=== PATIENT | male | born 1975 | race African-American/Black ===

== ENCOUNTER 2017-10-31 15:59 | Emergency (ER) | payer SELFPAY ==
[~2017-10-31] VITALS: Ht 175.3 cm; Wt 108.0 kg
[2017-10-31 16:12] VITALS: BP 156/80; PULSE 68; RESP 18; TEMP 98.5; O2SAT 98
[2017-10-31] MEDS ORDERED: IBUPROFEN 600 MG TAB PO ONE (19:00)
[2017-10-31] MEDS ORDERED: diphenhydrAMINE HCL 25 MG CAP PO ONE (19:00)
[2017-10-31] MEDS ORDERED: PROCHLORPERAZINE INJ 10 MG/2 ML VIAL IM ONE (19:00)
--- NOTE | 2017-10-31 19:05 | RADRPT ---
EXAM DATE/TIME: 10/31/2017 18:56 [place] COMPARISON: No previous studies available for comparison. INDICATIONS : Headaches for one day. RADIATION DOSE: 34.53 CTDIvol (mGy) MEDICAL HISTORY : None SURGICAL HISTORY : None. ENCOUNTER: Initial ACUITY: 1 day PAIN SCALE: 7/10 LOCATION: Bilateral cranial TECHNIQUE: Multiple contiguous axial images were obtained of the head. Using automated exposure control and adj ustment of the mA and/or kV according to patient size, radiation dose was kept as low as reasonably a chievable to obtain optimal diagnostic quality images. DICOM format image data is available electro nically for review and comparison. FINDINGS: CEREBRUM: The ventricles are normal for age. No evidence of midline shift, mass lesion, hemorrhage or acute in farction. No extra-axial fluid collections are seen. POSTERIOR FOSSA: The cerebellum and brainstem are intact. The 4th ventricle is midline. The cerebellopontine angle i s unremarkable. EXTRACRANIAL: The visualized portion of the orbits is intact. SKULL: The calvaria is intact. No evidence of skull fracture. CONCLUSION: No acute disease. Keith Kumar MD on October 31, 2017 at 19:03 Board Certified Radiologist. This report was verified electronically.
[2017-10-31] MEDS ORDERED: METO50TA PO (20:04)
[2017-10-31] MEDS ORDERED: LISI-515 PO (20:04)
--- NOTE | 2017-10-31 20:04 | PD ---
HPI Chief Complaint: Medication Refill Request Time Seen by Provider: 18:39 Travel History International Travel<30 days: No Contact w/Intl Traveler<30days: No Traveled to known affect area: No History of Present Illness HPI Patient is a 41 year old male who comes in complaining of a headache and needing his blood pressure medication. He says he has had headaches on and off for the past 6 months and he believes he needs a Cat scan. He says the pain is in the front of his head. This particular headache has been going on for the day. He denies nausea or vomiting. He had some blurred vision. He took some Tylenol with minimal relief. He denies fever or chills. Severity is mild. He also reports being out of his blood measure medication for 2-3 weeks. He denies chest pain or SOB. PFSH Past Medical History Chest Pain: No Congestive Heart Failure: No Diabetes: No Hypertension: Yes Past Surgical History Surgical History: No Previous Surgery Social History Tobacco Use: No Allergies-Medications (Allergen,Severity, Reaction): Coded Allergies: No Known Allergies (Unverified , 10/31/17) Reported Meds & Prescriptions Reported Meds & Active Scripts Active Lisinopril 20 Mg Tab 20 Mg PO DAILY Metoprolol Tartrate 50 Mg Tab 50 Mg PO BID Review of Systems Except as stated in HPI: all other systems reviewed are Neg General / Constitutional: No: Fever, Chills Eyes: Positive: Blurred Vision HENT: Positive: Headaches Cardiovascular: No: Chest Pain or Discomfort Respiratory: No: Shortness of Breath Gastrointestinal: No: Nausea, Vomiting Musculoskeletal: No: Myalgias Skin: No Rash, No Change in Pigmentation Neurologic: No: Weakness, Dizziness Physical Exam Narrative GENERAL: Awake and alert, in no acute distress. SKIN: Focused skin assessment warm/dry. HEAD: Atraumatic. Normocephalic. EYES: Pupils equal and round and reactive. No scleral icterus. EOMI. ENT: Mucous membranes pink and moist. NECK: Trachea midline. No JVD. CARDIOVASCULAR: Regular rate and rhythm. No murmur appreciated. RESPIRATORY: No accessory muscle use. Clear to auscultation. Breath sounds equal bilaterally. MUSCULOSKELETAL: No obvious deformities. No clubbing. No cyanosis. No edema. NEUROLOGICAL: Awake and alert. No obvious cranial nerve deficits. Motor grossly within normal limits. Normal speech. PSYCHIATRIC: Appropriate mood and affect; insight and judgment normal. Data Data Last Documented VS Vital Signs Date Time Temp Pulse Resp B/P (MAP) Pulse Ox O2 Delivery O2 Flow Rate FiO2 10/31/17 20:43 79 20 147/82 (103) 99 10/31/17 16:[address] Brain W/O Iv Contrast(Rout) (10/31/17 ) Ibuprofen (Motrin) (10/31/17 19:00) Diphenhydramine (Benadryl) (10/31/17 19:00) Prochlorperazine Inj (Compazine Inj) (10/31/17 19:00) Ed Discharge Order (10/31/17 20:11) MDM Medical Decision Making Medical Screen Exam Complete: Yes Emergency Medical Condition: Yes Medical Record Reviewed: Yes Differential Diagnosis tension headache vs chronic HTN vs dehydration vs medication refill Narrative Course Patient is a 41 year old male who comes in complaining of headache and needing blood pressure medication refill. Exam shows no neurologic abnormalities. CT head performed shows no acute abnormalities. Given prescriptions for his blood pressure medication. Advised to follow up with a primary care physician. Advised to return to the ED as needed for any worsening symptoms. Diagnosis Primary Impression: Headache Qualified Codes: R51 - Headache Additional Impression: Medication refill Referrals: [facility] call for appointment Patient Instructions: Acute Headache (ED), General Instructions, Hypertension ( ED) Additional Instructions: Take your blood pressure medication as prescribed. Take Tylenol or Ibuprofen as needed for headache. Follow up with a primary care doctor. Return to the ED as needed for any worsening symptoms. Scripts Lisinopril (Lisinopril) 20 Mg Tab 20 MG PO DAILY, #30 TAB 0 Refills Prov: Mitzy Henderson MD 10/31/17 Metoprolol Tartrate (Metoprolol Tartrate) 50 Mg Tab 50 MG PO BID, #60 TAB 0 Refills Prov: Mitzy Henderson MD 10/31/17 Disposition: 01 DISCHARGE HOME Condition: Stable Mitzy Henderson MD Oct 31, 2017 20:04
[2017-10-31 20:43] VITALS: BP 147/82
== END 2017-10-31 20:44 | disposition home or self-care (01) ==
LOC: NEPD 15:59
DX: R51 Headache (principal)
CPT/HCPCS: 70450; 96372; 99283; J0780